=== PATIENT | female | born 1945 | race Hispanic/Latino ===

== ENCOUNTER 2019-01-06 12:21 | Observation (INO) | payer OTHER ==
[~2019-01-06] VITALS: Ht 152.4 cm; Wt 74.4 kg
[~2019-01-06 12:21] MED LIST: CA C1TAB95 PO; COCO1000 PO; FLUV40CA PO; OMEG-96 PO
[2019-01-06 13:47] LABS: BASOPHILS % (AUTO) 0.8 % (0.0-5.0); EOSINOPHILS % (AUTO) 2.2 % (0.0-8.0); HEMATOCRIT 40.2 % (36-48); LYMPHOCYTES % (AUTO) 31.8 % (21.0-51.0); MEAN CORPUSCULAR HGB CONC 34.7 g/dL (32.0-36.0); MEAN CORPUSCULAR VOLUME 95.3 fL (79-99); MONOCYTES % (AUTO) 7.3 % (3.0-13.0); NEUTROPHILS % (AUTO) 57.9 % (40.0-77.0); NUCLEATED RED BLOOD CELLS 0.1 % (0.0-0.19); PLATELET COUNT (AUTO) 184 K/uL (130-400); RED BLOOD CELL COUNT(AUTO) 4.22 MIL/uL (4.00-5.50); RED CELL DISTRIBUTION WIDTH 12.9 % (11.0-15.5); WHITE BLOOD COUNT (AUTO) 6.3 K/uL (4.8-10.8)
[2019-01-06 13:58] LABS: CREATININE 0.9 mg/dL (0.5-1.5); POTASSIUM 4.2 mmol/L (3.5-5.1)
[2019-01-06 14:03] LABS: ALBUMIN 3.3 g/dL (3.5-5.0); BILIRUBIN,DIRECT 0.1 mg/dL (0.0-0.3); BILIRUBIN,TOTAL 0.4 mg/dL (0.2-1.0)
[2019-01-06 15:36] VITALS: BP 138/93
[2019-01-06] MEDS ORDERED: GUAIFENESIN-DM 200/20 MG 10 ML PO PRN (17:00)
[2019-01-06] MEDS ORDERED: DEXTROSE 50%-WATER 50 ML DISP.SYRIN IV PRN (17:00)
[2019-01-06] MEDS ORDERED: DIPHENHYDRAMINE HCL 25 MG CAPSULE PO PRN (17:00)
[2019-01-06] MEDS ORDERED: LACTULOSE 20 GM/30 ML UDCUP PO PRN (17:00)
[2019-01-06] MEDS ORDERED: GLUCAGON 1MG KIT 1 MG ML IM PRN (17:00)
[2019-01-06] MEDS ORDERED: ONDANSETRON HCL 4 MG/2 ML VIAL IVP PRN (17:00)
[2019-01-06] MEDS ORDERED: ZOLPIDEM TARTRATE 5 MG TAB PO PRN (17:00)
[2019-01-06] MEDS ORDERED: HYDROMORPHONE PCA 10 MG/50 ML 50 ML IV PRN (18:00)
[2019-01-06 19:13] VITALS: BP 132/85
[2019-01-06] MEDS: METHYLPREDNISOLONE SOD SUCC 125MG/2ML VIAL IVP SCH (19:35)
[2019-01-06] MEDS: HUMALOG PO SS1 SQ SCH (20:33)
[2019-01-06] MEDS ORDERED: INSULIN R PO SSI SQ SCH (21:00)
[2019-01-06] MEDS ORDERED: COMB5OS OU (21:01)
[2019-01-06] MEDS ORDERED: CYCL30DR OU (21:01)
[2019-01-06 23:00] VITALS: BP 129/72
[2019-01-07] MEDS: METHYLPREDNISOLONE SOD SUCC 125MG/2ML VIAL IVP SCH ×2 (01:48→12:31)
[2019-01-07 03:39] VITALS: BP 117/74
[2019-01-07 05:14] LABS: HEMATOCRIT 40.8 % (36-48); MEAN CORPUSCULAR HEMOGLOBIN 32.9 pg (27.0-33.0); MEAN CORPUSCULAR VOLUME 93.9 fL (79-99); PLATELET COUNT (AUTO) 191 K/uL (130-400); RED BLOOD CELL COUNT(AUTO) 4.34 MIL/uL (4.00-5.50); RED CELL DISTRIBUTION WIDTH 13.3 % (11.0-15.5); WHITE BLOOD COUNT (AUTO) 5.3 K/uL (4.8-10.8)
[2019-01-07 05:37] LABS: ALBUMIN 3.3 g/dL (3.5-5.0); BILIRUBIN,DIRECT 0.1 mg/dL (0.0-0.3); BILIRUBIN,TOTAL 0.4 mg/dL (0.2-1.0); CREATININE 0.9 mg/dL (0.5-1.5); TOTAL PROTEIN, SERUM 7.2 g/dL (6.0-8.3)
[2019-01-07] MEDS: HUMALOG PO SS1 SQ SCH ×4 (05:45→20:54)
[2019-01-07 08:05] VITALS: BP 138/84
[2019-01-07] MEDS ORDERED: PHARMACY COMMUNICATION MISC SCH (11:00)
--- NOTE | 2019-01-07 11:00 | NUR ---
DR. ISABEL AMBRIZ HERE TO SEE PATIENT. REVIEWED X-RAY IMAGES PROVIDED BY THE PATIENT THAT SHE HAD RECENTLY AN OUTPATIENT. STATED THE IMAGES WERE POOR QUALITY. PATIENT INFORMED DR. HALL THAT SHE ALSO HAD IMAGING STUDIES PERFORMED AT "[facility]". DR. ISABEL LOVE'S NURSE CALLED [facility] [phone] AND WAS TOLD PATIENT DID HAD IMAGING STUDIES DONE, BUT RESULTS ARE ON A CD AND WOULD HAVE TO BE PICKED UP. KATE AND DR. HALL WOULD SPEAK TO OUR RADIOLOGIST TO SEE IF HE WOULD BE ABLE TO ACCESS THESE IMAGING STUDIES. DR. HALL STATED NO DEFINITE PLANS FOR SURGERY YET, WOULD LET NURSING STAFF KNOW.
[2019-01-07 11:19] VITALS: BP 131/82
[2019-01-07] MEDS ORDERED: CALCITONIN 3.7 ML AEROSOL NS SCH (12:00)
[2019-01-07] MEDS: ENOXAPARIN SODIUM 40 MG/0.4 ML SYRINGE SQ SCH (12:31)
--- NOTE | 2019-01-07 14:10 | NUR ---
DC PLAN PER PATIENT, STATES SHE IS INDEPENDENT, LIVES WITH [facility] AND [facility], NO PROVIDER, NO DME, AND FEELS SAFE TO RETURN HOME IF RECOMMENDED BY MD. Addendum: 01/07/19 at 1411 by GHAZAL VINCENT RN CM Amended: Links added.
--- NOTE | 2019-01-07 14:30 | NUR ---
PATIENT REPORT PATIENT CALLED TO REPORT SHE FEELS "HOT, LIKE I'M SWEATING. MY HEAD HURTS, I FEEL LIKE MY EYES ARE BULGING." RECHECKS PATIENTS BLOOD SUGAR AND OBTAINED READING OF 210. I TOLD PATIENT I WOULD CALL DR. BAÑUELOS TO INFORM HIM. AND PATIENT REPLIED "YES. TELL HIM THE HE KNOWS IM NOT USED TO TAKING SO MANY MEDICATIONS. I DON'T WANT TO USE THE DILAUDID. IM NOT USED TO TAKING ALL THESE MEDICATIONS [SOLUMEDROL AND INSULIN]." I PAGED DR. BAÑUELOS AND RECEIVED CALLBACK. REPORTED PATIENT SYMPTOMS AND COMPLAINT REGARDING MEDICATIONS MD ORDERED IN HOSPITAL. DR. BAÑUELOS REPLIED OKAY TO STOP SOLUMEDROL. I ASKED MD IF HE WOULD LIKE TO TAPER SOLUMEDROL DOSE AND MD REPLIED IT WAS OKAY TO STOP.
[2019-01-07] MEDS ORDERED: ACETAMINOPHEN 325 MG TAB PO PRN (14:45)
[2019-01-07 16:33] VITALS: BP 129/73
[2019-01-07 19:16] VITALS: BP 125/76
[2019-01-07 23:43] VITALS: BP 108/66
[2019-01-08 03:47] VITALS: BP 107/41
[2019-01-08] MEDS: HUMALOG PO SS1 SQ SCH (07:22)
[2019-01-08 07:41] VITALS: BP 121/74
[2019-01-08] MEDS ORDERED: CALCITONIN 3.7 ML AEROSOL NS SCH (09:00)
[2019-01-08] MEDS: ENOXAPARIN SODIUM 40 MG/0.4 ML SYRINGE SQ SCH (09:45)
[2019-01-08 11:47] VITALS: BP 118/72
--- NOTE | 2019-01-08 13:34 | NUR ---
FLU VACCINE PT STATES HAD FLU VACCINE THIS Addendum: 01/08/19 at 1335 by JASON ANDRE RN Amended: Links added.
== END 2019-01-08 14:26 | disposition home or self-care (01) ==
LOC: EDH 12:21 → EDHIP 12:46 → 4AH 15:23
PROVIDERS: ADMIT Internal Medicine; ATTEND Internal Medicine
DX: M80.08XA Age-related osteoporosis with current pathological fracture, vertebra(e), initial encounter for fracture (principal); M48.07 Spinal stenosis, lumbosacral region; M51.17 Intervertebral disc disorders with radiculopathy, lumbosacral region; M43.17 Spondylolisthesis, lumbosacral region; E11.51 Type 2 diabetes mellitus with diabetic peripheral angiopathy without gangrene; E78.5 Hyperlipidemia, unspecified; I10 Essential (primary) hypertension; Z79.899 Other long term (current) drug therapy; Z88.0 Allergy status to penicillin
CPT/HCPCS: 36415 ×2; 80048 ×2; 80076 ×2; 82948 ×5; 85025; 85027; 96372 ×2; 96374; 96375; 96376; 99284; G0378 ×48; J1170; J1650 ×2; J2405; J2930 ×3